=== PATIENT | female | born 1985 | race Caucasian/White ===

== ENCOUNTER 2017-09-04 02:18 | Emergency (ER) | payer OTHER ==
[~2017-09-04] VITALS: Ht 177.8 cm; Wt 62.7 kg
[2017-09-04 02:20] VITALS: BP 135/83
== END 2017-09-04 03:49 | disposition home or self-care (01) ==
LOC: ED 03:43
DX: O99.711 Diseases of the skin and subcutaneous tissue complicating pregnancy, first trimester (principal); L50.9 Urticaria, unspecified; Z3A.01 Less than 8 weeks gestation of pregnancy
CPT/HCPCS: 99283

== ENCOUNTER 2021-02-03 09:58 | Day surgery (SDC) | payer OTHER ==
[~2021-02-03] VITALS: Ht 177.8 cm; Wt 66.9 kg
[~2021-02-03 09:58] MED LIST: IBUP-1222 PO
--- NOTE | 2021-02-03 10:08 | NUR ---
PT AMBULATORY TO BR WITH UPRIGHT STEADY GAIT
--- NOTE | 2021-02-03 10:12 | NUR ---
PT STATES ABD CRAMPING STARTING 0300 IN EPIGASTRIC AREA & RLQ. PT STATES SHE FEELS "OFF" PT CHANGED INTO A GOWN, MONITORS IN PLACE. AT BS
[2021-02-03 10:36] LABS: BASOPHILS % (AUTO) 0 % (0-1); EOSINOPHILS % (AUTO) 1 % (1-7); LYMPHOCYTES % (AUTO) 10 % (22-44); MD NO; MEAN CORPUSCULAR HEMOGLOBIN 30.3 pg (27.0-34.8); MEAN CORPUSCULAR HGB CONC 33.4 g/dL (32.4-35.8); MONOCYTES % (AUTO) 7 % (2-9); NEUTROPHILS % (AUTO) 82 % (42-75); PLATELET COUNT 256 x10^3/uL (130-400); RED BLOOD COUNT 4.52 x10^6/uL (3.82-5.3); RED CELL DISTRIBUTION WIDTH 13.6 % (9.6-15.2)
[2021-02-03 10:44] LABS: ALANINE AMINOTRANSFERASE 18 U/L (12-78); ALBUMIN 3.9 g/dL (3.4-5.0); ANION GAP 6 mmol/L (5-15); CALCIUM 8.9 mg/dL (8.5-10.1); CHLORIDE 108 mmol/L (98-107); CREATININE 0.85 mg/dL (0.55-1.02)
[2021-02-03 10:48] LABS: ALKALINE PHOSPHATASE 41 U/L (45-117); BILIRUBIN,TOTAL 1.3 mg/dL (0.2-1.0); TOTAL PROTEIN 7.5 g/dL (6.4-8.2)
[2021-02-03 10:52] LABS: MICROSCOPIC NOT IND
--- NOTE | 2021-02-03 11:15 | NUR ---
PT SITTING ON [employer] ON HER IPAD. NADN/VSS. CALL LIGHT WITHIN REACH. NO NEEDS AT THIS TIME.
[2021-02-03] MEDS ORDERED: SODIUM CHLORIDE FLUSH 10ML SYR IVF ONE (11:30)
--- NOTE | 2021-02-03 11:34 | NUR ---
PT TO CT
--- NOTE | 2021-02-03 11:46 | NUR ---
PT BACK FROM CT. PT CONNECTED TO MONITORS. CALL LIGHT WITHIN REACH
[2021-02-03] MEDS ORDERED: OMNIPAQUE 350 MG/ML, 100ML BOTTLE ONE (11:49)
--- NOTE | 2021-02-03 12:16 | NUR ---
LUNCH BREAK NOTE: CHART UP FOR MD RECHECK.
[2021-02-03] MEDS ORDERED: PIPERACILLIN/TAZO 3.375 GM in DEXTROSE 5% 50 ML IVPB ONE ×2 (13:00→13:30)
[2021-02-03] MEDS ORDERED: SODIUM CHLORIDE FLUSH 10ML SYR IVF PRN (13:30)
[2021-02-03] MEDS ORDERED: SODIUM CHLORIDE 0.9% 1,000 ML IV ONE (13:30)
[2021-02-03] MEDS ORDERED: MORPHINE SULFATE 4 MG/ML, 1ML IVPush PRN (13:30)
[2021-02-03] MEDS ORDERED: ONDANSETRON 2MG/ML, 2ML IVPush PRN ×2 (13:30→22:00)
--- NOTE | 2021-02-03 13:36 | NUR ---
Pt to be admitted to SURGICAL, room 461. Report called to
[2021-02-03 13:46] VITALS: BP 120/76
[2021-02-03] MEDS ORDERED: FENTANYL PF 100 MCG/2ML ONE ×2 (17:52→20:39)
[2021-02-03] MEDS ORDERED: MIDAZOLAM 1 MG/ML, 2ML ONE (17:52)
[2021-02-03] MEDS ORDERED: HYDROmorphone 1 MG/ML, 1ML INJ IVPush PRN (18:00)
[2021-02-03] MEDS ORDERED: ACETAMINOPHEN 325 MG TABLET PO PRN (18:00)
[2021-02-03] MEDS ORDERED: MEPERIDINE/PF 25MG/0.5ML IVPush PRN (18:00)
[2021-02-03] MEDS ORDERED: LABETALOL 5MG/ML, 20ML IV PRN (18:00)
[2021-02-03] MEDS ORDERED: OXYcodone 5 MG/5 ML ORAL.SOL UDC PO PRN ×2 (18:00→22:00)
[2021-02-03] MEDS ORDERED: PROMETHAZINE 25 MG/ML, 1ML IVPush PRN (18:00)
[2021-02-03] MEDS ORDERED: LORazepam 2 MG/ML, 1ML IVPush PRN (18:00)
[2021-02-03 18:30] VITALS: BP 109/63
[2021-02-03] MEDS ORDERED: EPINEPHRINE 1 MG/ML, 1ML ONE (18:43)
[2021-02-03] MEDS ORDERED: BUPIVACAINE/PF 0.5% ONE ×2 (18:43→19:55)
[2021-02-03] MEDS ORDERED: BUPIVACAINE/PF 0.5% INFIL ONE (20:10)
[2021-02-03] MEDS ORDERED: ROCURONIUM 10MG/ML,5ML ONE (20:16)
[2021-02-03] MEDS ORDERED: ONDANSETRON 2MG/ML, 2ML ONE (20:16)
[2021-02-03] MEDS ORDERED: PROPOFOL 10 MG/ML, 20ML ONE (20:16)
[2021-02-03] MEDS ORDERED: GLYCOPYRROLATE 0.2MG/1ML, 5ML ONE (20:16)
[2021-02-03] MEDS ORDERED: NEOSTIGMINE 1 MG/ML, 10ML ONE (20:16)
[2021-02-03] MEDS ORDERED: LIDOCAINE-MPF 2% ,5ML ONE (20:16)
[2021-02-03] MEDS ORDERED: DEXAMETHASONE 4 MG/ML, 1ML ONE (20:16)
[2021-02-03] MEDS ORDERED: KETOROLAC 30 MG/1 ML ONE (20:17)
[2021-02-03] MEDS ORDERED: OXYcodone 5 MG/5 ML ORAL.SOL UDC ONE (20:39)
[2021-02-03] MEDS ORDERED: ACETAMINOPHEN 325 MG TABLET ONE (20:39)
[2021-02-03] MEDS: FENTANYL PF 100 MCG/2ML IV PRN ×2 (20:47→21:05)
[2021-02-03 21:37] VITALS: BP 115/73
[2021-02-03] MEDS ORDERED: DIPHENHYDRAMINE 50 MG/ML, 1ML IVPush PRN (22:00)
== END 2021-02-03 23:27 | disposition home or self-care (01) ==
LOC: ED 10:34 → OUT 13:01 → EDIP 13:01 → UNDOADMIN 13:01 → EDIP 13:34 → 4NE 13:34 → OUT 23:27 → UNDODISIN 23:27
PROVIDERS: ATTEND Surgery
DX: K35.30 Acute appendicitis with localized peritonitis, without perforation or gangrene (principal); F12.10 Cannabis abuse, uncomplicated; Z20.822 Contact with and (suspected) exposure to COVID-19; Z79.899 Other long term (current) drug therapy; Z88.8 Allergy status to other drugs, medicaments and biological substances
CPT/HCPCS: 36415; 44970; 74177; 80053; 81003; 84703; 85025; 87635; 88304; 96374; 99285; J0171; J1100; J1885; J2250; J2405; J2543; J2704; J2710; J3010; J7030; Q9967; G0378

== ENCOUNTER 2021-02-05 05:21 | Inpatient (IN) | payer OTHER ==
[~2021-02-05] VITALS: Ht 177.8 cm; Wt 73.4 kg
[2021-02-05 06:26] LABS: BASOPHILS % (AUTO) 1 % (0-1); EOSINOPHILS % (AUTO) 1 % (1-7); LYMPHOCYTES % (AUTO) 21 % (22-44); MEAN CORPUSCULAR HEMOGLOBIN 30.4 pg (27.0-34.8); MEAN CORPUSCULAR HGB CONC 33.8 g/dL (32.4-35.8); MEAN PLATELET VOLUME 7.4 fL (7.4-10.4); MONOCYTES % (AUTO) 7 % (2-9); NEUTROPHILS % (AUTO) 71 % (42-75); PLATELET COUNT 256 x10^3/uL (130-400); RED BLOOD COUNT 4.41 x10^6/uL (3.82-5.3); RED CELL DISTRIBUTION WIDTH 13.8 % (9.6-15.2)
[2021-02-05 06:27] LABS: MD NO
[2021-02-05 06:37] LABS: ALANINE AMINOTRANSFERASE 20 U/L (12-78); ALBUMIN 3.9 g/dL (3.4-5.0); ANION GAP 6 mmol/L (5-15); CHLORIDE 108 mmol/L (98-107); CREATININE 0.83 mg/dL (0.55-1.02)
--- NOTE | 2021-02-05 06:37 | NUR ---
Pt states had appendectomy on . Had epigastic pain that was worse pain prior to appendectomy. Pt states epigastic pain has not gone away with meds and feel worse.
[2021-02-05 06:39] LABS: ALKALINE PHOSPHATASE 35 U/L (45-117); TOTAL PROTEIN 7.6 g/dL (6.4-8.2)
--- NOTE | 2021-02-05 06:39 | NUR ---
Pt up to bathroom for ua.
--- NOTE | 2021-02-05 06:43 | NUR ---
PROVIDER AT BEDSIDE TO EVALUATE PT. UA COLLECTED AND SENT TO LAB. PT STATES THE PAIN IN ABD FEEL LIKE BURINING DENIES FEVER.
[2021-02-05] MEDS ORDERED: MAALOX/HYOSCYAMINE/LIDOCAINE 45 ML BTL PO ONE (07:00)
[2021-02-05] MEDS ORDERED: ONDANSETRON 2MG/ML, 2ML ONE (07:00)
[2021-02-05] MEDS ORDERED: SODIUM CHLORIDE FLUSH 10ML SYR IVF ONE (07:00)
[2021-02-05] MEDS ORDERED: FAMOTIDINE 20 MG/2 ML IVPush ONE (07:00)
[2021-02-05] MEDS ORDERED: MAALOX/HYOSCYAMINE/LIDOCAINE 45 ML BTL ONE (07:00)
[2021-02-05] MEDS ORDERED: HYDROmorphone 1 MG/ML, 1ML INJ IV ONE ×3 (07:00→13:30)
[2021-02-05] MEDS ORDERED: HYDROmorphone 1 MG/ML, 1ML INJ ONE ×2 (07:00→09:48)
[2021-02-05] MEDS ORDERED: ONDANSETRON 2MG/ML, 2ML IVPush ONE (07:00)
[2021-02-05] MEDS ORDERED: FAMOTIDINE 20 MG/2 ML ONE (07:01)
[2021-02-05 07:04] LABS: MICROSCOPIC NOT IND
--- NOTE | 2021-02-05 07:06 | NUR ---
GAVE REPORT TO CAM PETE.
--- NOTE | 2021-02-05 07:13 | NUR ---
PT OFF THE FLOOR TO CT
[2021-02-05] MEDS ORDERED: OMNIPAQUE 350 MG/ML, 100ML BOTTLE ONE (07:15)
--- NOTE | 2021-02-05 09:00 | NUR ---
This RN to bedside to attempt to educate pt about d/c and home care instructions. Pt states "with the amount of pain that I'm in, I have a hard time believing that this is an ulcer." This RN relayed pt concerns to MD Das. Per Thiago, pt tbad for pain management. Pt made aware of her options, tbad or d/c. Pt decided to be admitted.
--- NOTE | 2021-02-05 09:35 | NUR ---
PT REPORTING INCREASING PAIN. MESSAGE LEFT FOR .
--- NOTE | 2021-02-05 10:41 | NUR ---
TASK RN: PT LAYING ON [place] ALEX/[place]HE[place]. CALL LIGHT WITHIN REACH. NO NEEDS AT THIS TIME
--- NOTE | 2021-02-05 10:51 | NUR ---
TASK RN NOTE: FIRST ATTEMPT TO CALL REPORT.
--- NOTE | 2021-02-05 10:54 | NUR ---
Pt to be admitted to 3N, room 347. Report called to EMETERIO.
[2021-02-05 13:00] VITALS: BP 126/77
[2021-02-05 13:05] VITALS: BP 126/77
[2021-02-05] MEDS ORDERED: LORazepam 1MG TABLET PO PRN (14:30)
[2021-02-05] MEDS ORDERED: ACETAMINOPHEN 325 MG TABLET PO PRN (14:30)
[2021-02-05] MEDS ORDERED: METOCLOPRAMIDE 5 MG/ML, 2ML IVPush PRN (14:30)
[2021-02-05] MEDS ORDERED: ONDANSETRON 2MG/ML, 2ML IVPush PRN (14:30)
[2021-02-05] MEDS ORDERED: BISACODYL 10 MG SUPP PR PRN (14:30)
[2021-02-05] MEDS ORDERED: ONDANSETRON ODT 4 MG PO PRN (14:30)
[2021-02-05] MEDS ORDERED: OXYcodone IR 5MG TABLET PO PRN (14:30)
[2021-02-05] MEDS ORDERED: POLYETHYLENE GLYCOL 17 GM PACKET PO PRN (14:30)
[2021-02-05] MEDS ORDERED: morphine SULFATE 10 MG/ML, 1ML IVPush PRN (14:30)
[2021-02-05] MEDS ORDERED: PANTOPRAZOLE 80 MG in SODIUM CHLORIDE 0.9% 50 ML IV ONE (14:30)
[2021-02-05] MEDS ORDERED: TEMAZEPAM 15 MG CAPSULE PO PRN (14:30)
[2021-02-05] MEDS: SODIUM CHLORIDE 0.9% 1,000 ML IV SCH ×2 (14:48→16:30)
[2021-02-05] MEDS: D5%-LR+KCL 20MEQ 1,000 ML IV SCH (16:40)
[2021-02-05 16:52] LABS: MICROSCOPIC NOT IND
[2021-02-05] MEDS: PANTOPRAZOLE 80 MG in SODIUM CHLORIDE 0.9% 100 ML IV SCH (17:13)
[2021-02-05 19:33] VITALS: BP 112/71
[2021-02-06 00:31] VITALS: BP 106/67
[2021-02-06] MEDS: PANTOPRAZOLE 80 MG in SODIUM CHLORIDE 0.9% 100 ML IV SCH ×2 (00:47→10:30)
[2021-02-06] MEDS: D5%-LR+KCL 20MEQ 1,000 ML IV SCH ×2 (02:28→13:40)
[2021-02-06 06:09] LABS: BASOPHILS % (AUTO) 1 % (0-1); EOSINOPHILS % (AUTO) 1 % (1-7); LYMPHOCYTES % (AUTO) 31 % (22-44); MEAN CORPUSCULAR HGB CONC 33.4 g/dL (32.4-35.8); MEAN PLATELET VOLUME 7.6 fL (7.4-10.4); MONOCYTES % (AUTO) 9 % (2-9); NEUTROPHILS % (AUTO) 58 % (42-75); PLATELET COUNT 217 x10^3/uL (130-400); RED BLOOD COUNT 4.03 x10^6/uL (3.82-5.3); RED CELL DISTRIBUTION WIDTH 13.2 % (9.6-15.2)
[2021-02-06 06:17] LABS: MD NO
[2021-02-06 06:21] LABS: ALBUMIN 3.3 g/dL (3.4-5.0); CALCIUM 8.5 mg/dL (8.5-10.1)
[2021-02-06 06:32] LABS: ALANINE AMINOTRANSFERASE 17 U/L (12-78); ALKALINE PHOSPHATASE 30 U/L (45-117); BILIRUBIN,TOTAL 1.1 mg/dL (0.2-1.0); CHOL/HDL RATIO 3.5; CHOLESTEROL, TOTAL 108 mg/dL (140-239); CREATININE 0.74 mg/dL (0.55-1.02); HDL CHOL % 29 % (28-40); HDL CHOLESTEROL (DIRECT) 31 mg/dL (40-60); LDL CHOLESTEROL,CALCULATED 61 mg/dL (54-169); TOTAL PROTEIN 6.4 g/dL (6.4-8.2); TRIGLYCERIDES 80 mg/dL (50-200); VLDL CHOLESTEROL 16 mg/dL (0-25)
[2021-02-06 06:36] LABS: ANION GAP 4 mmol/L (5-15); CHLORIDE 109 mmol/L (98-107)
[2021-02-06 07:25] VITALS: BP 118/76
[2021-02-06] MEDS ORDERED: POLY17PO5 PO (13:05)
[2021-02-06 14:01] VITALS: BP 126/83
[2021-02-07] MEDS ORDERED: PROPOFOL 10 MG/ML, 20ML ONE (16:25)
== END 2021-02-06 15:15 | disposition home or self-care (01) | DRG 390 ==
LOC: ED 09:19 → EDIP 09:30 → 3N 10:52 → DCLOUNGE 02-06 15:12
PROVIDERS: ADMIT Hospitalist; ATTEND Internal Medicine
PROC: 0DB68ZX Excision of Stomach, Via Natural or Artificial Opening Endoscopic, Diagnostic (ICD-10-PCS; 2021-02-06)
PROC: 0DB98ZX Excision of Duodenum, Via Natural or Artificial Opening Endoscopic, Diagnostic (ICD-10-PCS; principal; 2021-02-06 09:00)
DX: K56.7 Ileus, unspecified (principal); D18.03 Hemangioma of intra-abdominal structures; F12.90 Cannabis use, unspecified, uncomplicated; G47.00 Insomnia, unspecified; K29.00 Acute gastritis without bleeding; K75.9 Inflammatory liver disease, unspecified; Z79.1 Long term (current) use of non-steroidal anti-inflammatories (NSAID); Z20.822 Contact with and (suspected) exposure to COVID-19; Z88.8 Allergy status to other drugs, medicaments and biological substances
CPT/HCPCS: 36415; 74018; 74022; 74177; 76700; 80053; 80061; 81003; 83690; 83735; 84100; 84443; 85025; 87635; 96374; 96375; 96376; 99285; G0378; J1170; J2405; J2704; Q9967; C9113; J2270; J3480; J7030